=== PATIENT | male | born 1975 | race Caucasian/White ===

== ENCOUNTER 2018-02-19 13:23 | Observation (INO) ==
--- NOTE | 2018-02-19 13:48 | ED ---
HPI General Chief complaint: Extremity Injury, Upper Stated complaint: Rt hand injury Time Seen by Provider: 02/19/18 13:40 History of Present Illness HPI narrative: 42-year-old male presents to the emergency department for evaluation of right hand injury. 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 States that he went to urgent care and they removed the foreign body from his hand and placed him on clindamycin 300 mg 4 times daily. States he has been taking the clindamycin as prescribed, has had a total of 8 doses so far. States that the area has become more swollen and painful. States that he has decreased range of motion in the affected joint. Denies any fever, chills, nausea, vomiting, numbness or tingling, weakness. No other complaints or concerns. States he is up-to-date on his tetanus vaccination. Related Data Home Medications Medication Instructions Recorded Confirmed No Known Home Medications 02/19/18 02/19/18 Allergies Allergy/AdvReac Type Severity Reaction Status Date / Time No Known Allergies Allergy Unverified 02/19/18 13:33 Review of Systems ROS: all other systems reviewed are negative PMFSH Medical History Medical History No significant past medical history (Acute) Social History Social History Substance History: No History of Abuse Second Hand Smoke Exposure: No Smoking Status: Never smoker How Often Do You Have a Drink Containing Alcohol: Monthly or less Recent Travel in [facility] within the Last 8 Weeks: No Recent Out of Country Travel within the Last 8 Weeks: No Exam Narrative Exam Narrative: GENERAL: Well-nourished and well-developed pleasant patient in no acute distress who is nontoxic appearing. SKIN: Warm and dry. HEAD: Normocephalic and atraumatic. EYES: No injection, drainage, or hyphema noted. PERRLA. EOMI. ENT: No nasal drainage noted. Oropharynx is clear. NECK: Supple and the trachea is midline. CARDIOVASCULAR: Regular rate and rhythm. RESPIRATORY: Breath sounds are equal bilaterally with no accessory muscle use, wheezing, rhonchi, or crackles. GASTROINTESTINAL: Abdomen is soft, non-tender, and nondistended. EXTREMITY: Right hand swollen, erythematous and tender over second MCP joint dorsal aspect with decreased range of motion in this joint. Full range of motion in all other joints. Normal opposition of thumb. Distal extremity neurovascularly intact with intact two point discrimination. MUSCULOSKELETAL: No obvious deformities, swelling, cyanosis, or ecchymosis is present throughout the upper and lower extremities. Patient has full range of motion without any signs of neurovascular compromise. Distal pulses are 2+ throughout. NEUROLOGICAL: Awake, alert, and oriented. Normal speech and gait. Cranial nerves are grossly intact. Course Initial Documented Vital Signs Temperature 99.3 F 02/19/18 13:28 Pulse Rate 66 02/19/18 13:28 Respiratory Rate 16 02/19/18 13:28 Blood Pressure 132/74 02/19/18 13:28 Pulse Oximetry 98 02/19/18 13:28 Last Documented Vital Signs Temperature 99.3 F 02/19/18 13:28 Pulse Rate 66 02/19/18 13:28 Respiratory Rate 16 02/19/18 13:28 Blood Pressure 132/74 02/19/18 13:28 Pulse Oximetry 98 02/19/18 13:28 Medical Decision Making MDM Narrative Medical decision making narrative: 42-year-old male presents to the emergency department for evaluation of right hand injury. Patient is afebrile, vital signs are stable. X-ray imaging has been ordered and is pending. Patient has been on antibiotic therapy for the past 2-1/2 days with worsening of symptoms. X-ray shows soft tissue swelling, otherwise unremarkable. I spoke with Dr. Navarro hand specialist who recommends admission to medicine for IV antibiotics, NPO, she will come see patient. I spoke with Arline Singleton [facility] who agrees to accept the patient to Dr. Al's service. Medical Screen Exam Complete: Yes Emergency Medical Condition: Yes Differential Diagnosis Differential Diagnosis: Cellulitis versus septic arthritis versus foreign body retention Lab Data Result diagrams: 02/19/18 15:08 02/19/18 15:08 Lab Results 02/19/18 02/19/18 02/19/18 Range/Units 15:08 15:08 15:08 CBC w Diff Auto diff final WBC 6.9 (4.0-11.0) th/mm3 RBC 4.97 (4.50-5.90) mil/mm3 Hgb 13.9 (13.0-17.0) gm/dL Hct 41.5 (39.0-51.0) % MCV 83.5 (80.0-100.0) fL MCH 28.0 (27.0-34.0) pg MCHC 33.6 (32.0-36.0) % RDW 13.1 (11.6-17.2) % Plt Count 260 (150-450) th/mm3 MPV 8.2 (7.0-11.0) fL Neut % (Auto) 64.8 (16.0-70.0) % Lymph % (Auto) 25.4 (9.0-44.0) % [place] % (Auto) 8.2 H (0.0-8.0) % Eos % (Auto) 1.1 (0.0-4.0) % Baso % (Auto) 0.5 (0.0-2.0) % Neut # (Auto) 4.4 (1.8-7.7) th/mm3 Lymph # (Auto) 1.8 (1.0-4.8) th/mm3 [place] # (Auto) 0.6 (0.0-0.9) th/mm3 Eos # (Auto) 0.1 (0.0-0.4) th/mm3 Baso # (Auto) 0.0 (0.0-0.2) th/mm3 WBC Differential . Differential Comment . ESR (0-15) mm/hr PT 10.5 (9.8-11.6) sec INR 1.0 Ratio Sodium 139 (136-145) meq/L Potassium 4.1 (3.5-5.1) meq/L Chloride 105 (98-107) meq/L Carbon Dioxide 27.9 (21.0-32.0) meq/L Anion Gap 6 (5-15) meq/L BUN 20 H (7-18) mg/dL Creatinine 1.30 (0.60-1.30) mg/dL Estimated GFR 61 L (>89) mL/min Random Glucose 88 (74-106) mg/dL Calcium 8.5 (8.5-10.1) mg/dL Total Bilirubin 0.3 (0.2-1.0) mg/dL AST 13 L (15-37) U/L ALT 20 (12-78) U/L Alkaline Phosphatase 117 (45-117) U/L C-Reactive Protein (0.00-0.30) mg/dL Total Protein 7.3 (6.4-8.2) g/dL Albumin 3.9 (3.4-5.0) g/dL 02/19/18 02/19/18 Range/Units 15:28 15:28 CBC w Diff WBC (4.0-11.0) th/mm3 RBC (4.50-5.90) mil/mm3 Hgb (13.0-17.0) gm/dL Hct (39.0-51.0) % MCV (80.0-100.0) fL MCH (27.0-34.0) pg MCHC (32.0-36.0) % RDW (11.6-17.2) % Plt Count (150-450) th/mm3 MPV (7.0-11.0) fL Neut % (Auto) (16.0-70.0) % Lymph % (Auto) (9.0-44.0) % [place] % (Auto) (0.0-8.0) % Eos % (Auto) (0.0-4.0) % Baso % (Auto) (0.0-2.0) % Neut # (Auto) (1.8-7.7) th/mm3 Lymph # (Auto) (1.0-4.8) th/mm3 [place] # (Auto) (0.0-0.9) th/mm3 Eos # (Auto) (0.0-0.4) th/mm3 Baso # (Auto) (0.0-0.2) th/mm3 WBC Differential Differential Comment ESR 6 (0-15) mm/hr PT (9.8-11.6) sec INR Ratio Sodium (136-145) meq/L Potassium (3.5-5.1) meq/L Chloride (98-107) meq/L Carbon Dioxide (21.0-32.0) meq/L Anion Gap (5-15) meq/L BUN (7-18) mg/dL Creatinine (0.60-1.30) mg/dL Estimated GFR (>89) mL/min Random Glucose (74-106) mg/dL Calcium (8.5-10.1) mg/dL Total Bilirubin (0.2-1.0) mg/dL AST (15-37) U/L ALT (12-78) U/L Alkaline Phosphatase (45-117) U/L C-Reactive Protein 1.54 H (0.00-0.30) mg/dL Total Protein (6.4-8.2) g/dL Albumin (3.4-5.0) g/dL Imaging Data Radiologist's impression: Hand X-Ray 02/19/18 13:47 CONCLUSION: Soft tissue swelling, negative for radiopaque foreign body Point of care ultrasound can be used to exclude such. Discharge Plan Discharge Disposition Patient Disposition: 30 Still Patient Discharge Condition Condition: Stable Discharge Details Diagnosis: Infection of right hand Physicians Team ED Provider: Gracie Solano ED Midlevel Provider: Louann Damon Primary Care Provider: Barbara Huffman Attending Provider: Pablo Al Other Providers: Poonam Navarro ED Status: Admitted Observation Patient
--- NOTE | 2018-02-19 14:34 | XR ---
EXAM DATE: 02/19/2018 2:15 PM EDT AGE/SEX: 42 years / Male INDICATIONS: Pain and swelling between 1st and 2nd digit. Patient states that a palm needle was st uck into his hand. CLINICAL DATA: This is the patient's initial encounter. Patient reports that signs and symptoms have been present for 3 days and indicates a pain score of 10/10. MEDICAL/SURGICAL HISTORY: None. None. COMPARISON: No prior exams available for comparison. FINDINGS: Bony structures are intact and in normal alignment. Osseous density is normal. Minimal soft tissue sw elling No radiopaque foreign bodies seen. CONCLUSION: Soft tissue swelling, negative for radiopaque foreign body Point of care ultrasound can be used to exclude such. Electronically signed by: Teddy Blanchard MD 02/19/2018 2:33 PM EDT
[2018-02-19] MEDS ORDERED: Vancomycin Inj 1 GM/200 ML PIGGYBACK IV.SIG ONE (15:03)
[2018-02-19 15:20] LABS: Baso % (Auto) 0.5 % (0.0-2.0); Eos # (Auto) 0.1 th/mm3 (0.0-0.4); Eos % (Auto) 1.1 % (0.0-4.0); Hematocrit 41.5 % (39.0-51.0); Hemoglobin 13.9 gm/dL (13.0-17.0); Lymph # (Auto) 1.8 th/mm3 (1.0-4.8); Lymph % (Auto) 25.4 % (9.0-44.0); Mean Corpuscular HGB Conc 33.6 % (32.0-36.0); Mean Corpuscular Volume 83.5 fL (80.0-100.0); Mean Platelet Volume 8.2 fL (7.0-11.0); Mono # (Auto) 0.6 th/mm3 (0.0-0.9); Mono % (Auto) 8.2 % (0.0-8.0); Neut # (Auto) 4.4 th/mm3 (1.8-7.7); Neut % (Auto) 64.8 % (16.0-70.0); Platelet Count 260 th/mm3 (150-450); Red Blood Count 4.97 mil/mm3 (4.50-5.90); Red Cell Distribution Width 13.1 % (11.6-17.2); White Blood Count 6.9 th/mm3 (4.0-11.0)
[2018-02-19 15:30] LABS: Chloride 105 meq/L (98-107); Potassium 4.1 meq/L (3.5-5.1); Sodium 139 meq/L (136-145)
[2018-02-19 15:33] LABS: Calcium 8.5 mg/dL (8.5-10.1); Prothrombin Time 10.5 sec (9.8-11.6)
[2018-02-19 15:34] LABS: Albumin 3.9 g/dL (3.4-5.0); Anion Gap 6 meq/L (5-15); Blood Urea Nitrogen 20 mg/dL (7-18); Carbon Dioxide 27.9 meq/L (21.0-32.0); Glucose,Random 88 mg/dL (74-106)
[2018-02-19 15:37] LABS: Alanine Aminotransferase 20 U/L (12-78); Aspartate Aminotransferase 13 U/L (15-37); Glomerular Filtration Rate 61 mL/min (>89)
[2018-02-19 15:38] LABS: Total Protein 7.3 g/dL (6.4-8.2)
[2018-02-19 15:40] LABS: Alkaline Phosphatase 117 U/L (45-117)
[2018-02-19] MEDS ORDERED: Vancomycin Inj 1,000 MG in Sodium Chlor 0.9% Inj 250 ML IV.SIG ONE (16:00)
[2018-02-19] MEDS ORDERED: Acetaminophen 325 MG Tablet PO PRN (16:22)
[2018-02-19] MEDS ORDERED: Bisacodyl 10 MG Supp RECTAL PRN (16:22)
--- NOTE | 2018-02-19 16:24 | P.HP ---
History of Present Illness Primary Care Physician: Barbara Huffman Chief Complaint: right hand infection, failed outpatient antibiotic therapy History of Present Illness: This is a 42-year-old male patient with no known medical history presented to the emergency department with right hand infection. 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 At that time he went to the urgent care and they removed a foreign body and placed him on clindamycin. Patient states he has been compliant with the clindamycin 4 times a day. Over the past 48 hours his right hand has gotten worse despite antibiotic use, states that the swelling has worsened as well as the pain. He complains of limited range of motion especially with his right index finger. Patient denies any fevers, chills, headache, chest pain, abdominal pain, nausea, vomiting, diarrhea or dysuria. Eyes any numbness or tingling in the right hand. He does admit to having a tetanus shot roughly 2 years ago. Denies any medical history. Does not take any medications at home. Denies smoking. Admits to weekly alcohol use. Denies any significant family medical history. - Diagnosis (1) Infection of right hand Review of Systems All other systems reviewed negative except as stated in HPI PMFSH - History History Provided By: Patient - Medical History Medical History: Medical History (Last Updated 02/19/18 @ 17:18 by Arline Singleton) No significant past medical history Tibia/fibula fracture - Family History Family History: Family History (Last Reviewed 02/19/18 @ 17:18 by Arline Singleton) Other Family history in first degree relatives is unremarkable - Tobacco History Second Hand Smoke Exposure: No Tobacco Use In Past 30 Days: No Smoking Status: Never smoker - Alcohol History How Often Do You Have a Drink Containing Alcohol: Monthly or less - Substance Use History Substance History: No History of Abuse - Travel History Recent Travel in the [place] Within the Last 8 Weeks: No Recent Travel Out of the Country Within the Last 8 Weeks: No - Immunization History Tetanus Immunization: <5 Years Hx Influenza Vaccine This Season: No Medications and Allergies Active Medications: Active Medications Vancomycin HCl 1,000 mg/ (Sodium Chloride) 250 mls @ 250 mls/hr IV.SIG ONCE ONE Stop: 02/19/18 16:59 Last Admin: 02/19/18 15:32 Dose: 250 mls/hr Sodium Chloride (Ns Flush) 2 ml IV.FLUSH PRN PRN PRN Reason: FLUSH AFTER USING IV ACCESS Allergies Allergy/AdvReac Type Severity Reaction Status Date / Time No Known Allergies Allergy Unverified 02/19/18 13:33 Home Medications Medication Instructions Recorded Confirmed Type No Known Home Medications 02/19/18 02/19/18 History Exam Vital signs: Vital Signs 02/19/18 13:28 Temperature 99.3 F Pulse Rate 66 Respiratory Rate 16 Blood Pressure 132/74 Pulse Oximetry 98 Intake & Output 02/18/18 02/19/18 02/19/18 18:59 06:59 18:59 Intake Total 100 / 100 Balance 100 / 100 Weight 118 kg Intake: IV 100 / 100 Maxipime Inj 1,000 MG In NS Inj 100 / 100 100 ML @ 200 mls/hr IV.SIG ONCE ONE Rx#:[id number] Narrative: GENERAL: Well-developed, well-nourished patient in [facility]. SKIN: Warm and dry. No rash. Right hand with swelling and erythema. Right index finger with limited range of motion. HEAD: Normocephalic. Atraumatic. EYES: Pupils equal and round. No scleral icterus. No injection or drainage. ENT: No nasal bleeding or discharge. Mucous membranes pink and moist. NECK: Supple. Trachea midline. CARDIOVASCULAR: Regular rate and rhythm. S1, S2 noted. No murmur appreciated. RESPIRATORY: No accessory muscle use. Clear to auscultation. Breath sounds equal bilaterally. GASTROINTESTINAL: Abdomen soft, non-tender, nondistended. Normoactive bowel sounds x4. MUSCULOSKELETAL: No obvious deformities. Extremities without clubbing, cyanosis , or edema. NEUROLOGICAL: Awake and alert. No obvious cranial nerve deficits. Motor grossly within normal limits. 5/5 muscle strength in bilateral upper and lower extremities. Normal speech. PSYCHIATRIC: Appropriate mood and affect; insight and judgment normal. Results - Labs CBC & Chem 7: 02/19/18 15:08 02/19/18 15:08 Labs: Laboratory Results - last 24 hr 02/19/18 02/19/18 02/19/18 15:08 15:08 15:08 CBC w Diff Auto diff final WBC 6.9 RBC 4.97 Hgb 13.9 Hct 41.5 MCV 83.5 MCH 28.0 MCHC 33.6 RDW 13.1 Plt Count 260 MPV 8.2 Neut % (Auto) 64.8 Lymph % (Auto) 25.4 [place] % (Auto) 8.2 H Eos % (Auto) 1.1 Baso % (Auto) 0.5 Neut # (Auto) 4.4 Lymph # (Auto) 1.8 [place] # (Auto) 0.6 Eos # (Auto) 0.1 Baso # (Auto) 0.0 WBC Differential . Differential Comment . PT 10.5 INR 1.0 Sodium 139 Potassium 4.1 Chloride 105 Carbon Dioxide 27.9 Anion Gap 6 BUN 20 H Creatinine 1.30 Estimated GFR 61 L Random Glucose 88 Calcium 8.5 Total Bilirubin 0.3 AST 13 L ALT 20 Alkaline Phosphatase 117 C-Reactive Protein Total Protein 7.3 Albumin 3.9 02/19/18 15:28 CBC w Diff WBC RBC Hgb Hct MCV MCH MCHC RDW Plt Count MPV Neut % (Auto) Lymph % (Auto) [place] % (Auto) Eos % (Auto) Baso % (Auto) Neut # (Auto) Lymph # (Auto) [place] # (Auto) Eos # (Auto) Baso # (Auto) WBC Differential Differential Comment PT INR Sodium Potassium Chloride Carbon Dioxide Anion Gap BUN Creatinine Estimated GFR Random Glucose Calcium Total Bilirubin AST ALT Alkaline Phosphatase C-Reactive Protein 1.54 H Total Protein Albumin - Imaging Impressions Hand X-Ray 02/19/18 13:47 CONCLUSION: Soft tissue swelling, negative for radiopaque foreign body Point of care ultrasound can be used to exclude such. Caprini VTE Risk Assessment Caprini VTE Risk Assessment: No/Low Risk (score <= 1) Caprini Risk Assessment Model: Point Value = 1 Point Value = 2 Point Value = 3 Point Value = 5 Age 41-60 Minor surgery BMI > 25 kg/m2 Swollen legs Varicose veins or History of unexplained or recurrent spontaneous Oral contraceptives or hormone replacement Sepsis (< 1 month) Serious lung disease, including pneumonia (< 1 month) Abnormal pulmonary function Acute myocardial infarction Congestive heart failure (< 1 month) History of inflammatory bowel disease Medical patient at bed rest Age 61-74 Arthroscopic surgery Major open surgery (> 45 min) Laparoscopic surgery (> 45 min) Malignancy Confined to bed (> 72 hours) Immobilizing plaster cast Central venous access Age >= 75 History of VTE Family history of VTE Factor V Leiden Prothrombin [id number] Lupus anticoagulant Anticardiolipin antibodies Elevated serum homocysteine Heparin-induced thrombocytopenia Other congenital or acquired thrombophilia Stroke (< 1 month) Elective arthroplasty Hip, pelvis, or leg fracture Acute spinal cord injury (< 1 month) Prophylaxis Regimen: Total Risk Factor Score Risk Level Prophylaxis Regimen 0-1 Low Early ambulation 2 Moderate Order ONE of the following: *Sequential Compression Device (SCD) *Heparin 5000 units SQ BID 3-4 Higher Order ONE of the following medications: *Heparin 5000 units SQ TID *Enoxaparin/Lovenox 40 mg SQ daily (WT < 150 kg, CrCl > 30 mL/min) *Enoxaparin/Lovenox 30 mg SQ daily (WT < 150 kg, CrCl > 10-29 mL/min) *Enoxaparin/Lovenox 30 mg SQ BID (WT < 150 kg, CrCl > 30 mL/min) AND/OR *Sequential Compression Device (SCD) 5 or more Highest Order ONE of the following medications: *Heparin 5000 units SQ TID (Preferred with Epidurals) *Enoxaparin/Lovenox 40 mg SQ daily (WT < 150 kg, CrCl > 30 mL/min) *Enoxaparin/Lovenox 30 mg SQ daily (WT < 150 kg, CrCl > 10-29 mL/min) *Enoxaparin/Lovenox 30 mg SQ BID (WT < 150 kg, CrCl > 30 mL/min) AND *Sequential Compression Device (SCD) Assessment and Plan - Assessment (1) Infection of right hand Code(s): L08.9 - Local infection of the skin and subcutaneous tissue, unspecified Status: Acute - Plan This is a 42-year-old male patient with: Right hand infection secondary to injury Failed outpatient antibiotic therapy with Clindamycin -Patient presents with right hand swelling and pain. 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 Failed outpatient antibiotic therapy with clindamycin. -Right hand x-ray reviewed showing soft tissue swelling. No foreign body. -Hand surgery has been consulted, has seen patient in order for right hand MRI, evaluate for any septic arthritis. This is pending. Follow. -Patient given IV cefepime and vancomycin in ED. Will continue for now. -CBC reviewed, no leukocytosis at this time. No fever documented. Monitor for infection. -Keep NPO for now. May need surgery. -Supportive care. DVT Prophylaxis: SCDs.
[2018-02-19] MEDS ORDERED: Gadobutrol PF 10 MMOL/10 ML Vial (for RAD) IV.SIG ONE (17:40)
--- NOTE | 2018-02-19 18:37 | MR ---
EXAM DATE: 02/19/2018 6:15 PM EDT AGE/SEX: 42 years / Male INDICATIONS: Abscess. Infection CLINICAL DATA: This is the patient's initial encounter. Patient reports that signs and symptoms have been present for 3 days and indicates a pain score of 5/10. MEDICAL/SURGICAL HISTORY: None. . ORIF tibia. COMPARISON: No prior exams available for comparison. TECHNIQUE: Multiplanar, multisequence MRI examination was performed without contrast and after the i ntravenous administration of 10 ml Gadavist (gadobutrol) contrast as a single exam dose. FINDINGS: There is subcutaneous edema predominantly on the dorsum of the hand. No loculated fluid is seen to rinaldi ggest abscess formation. No significant marrow signal abnormality to suggest osteomyelitis. No fractu re or dislocation. Small joint effusion at the second metacarpophalangeal joint. CONCLUSION: 1. Cellulitis, predominantly on the dorsum of the hand without drainable fluid collection. Mild effu pardeep at the second metacarpophalangeal joint. No evidence for osteomyelitis. Electronically signed by: Noam Fagan MD 02/19/2018 6:36 PM EDT
[2018-02-19] MEDS: Sod Chloride 0.9% Inj 1,000 ML IV.CONT SCH (19:12)
[2018-02-20] MEDS: Sod Chloride 0.9% Inj 1,000 ML IV.CONT SCH (06:07)
[2018-02-20] MEDS ORDERED: Neomycin/Polymyxin G.U. Irrigant 1 ML Ampul ONE (07:53)
[2018-02-20] MEDS ORDERED: Lidocaine 2% Inj 50 ML Vial ONE (07:53)
[2018-02-20] MEDS ORDERED: fentaNYL Citrate Inj 100 MCG/2 ML Ampul ONE (07:58)
[2018-02-20] MEDS ORDERED: Metoprolol Tartrate 25 MG Tablet PO ONE (08:10)
[2018-02-20] MEDS ORDERED: Chlorhexidine Gluconate 2% 1 Pack (2 Cloths) TOPICAL ONE (08:10)
[2018-02-20 08:47] LABS: Baso % (Auto) 0.5 % (0.0-2.0); Eos # (Auto) 0.1 th/mm3 (0.0-0.4); Eos % (Auto) 1.8 % (0.0-4.0); Hemoglobin 13.9 gm/dL (13.0-17.0); Lymph # (Auto) 1.3 th/mm3 (1.0-4.8); Mean Corpuscular HGB Conc 33.9 % (32.0-36.0); Mean Corpuscular Hemoglobin 28.6 pg (27.0-34.0); Mean Corpuscular Volume 84.5 fL (80.0-100.0); Mean Platelet Volume 8.6 fL (7.0-11.0); Mono # (Auto) 0.4 th/mm3 (0.0-0.9); Mono % (Auto) 8.3 % (0.0-8.0); Neut # (Auto) 3.6 th/mm3 (1.8-7.7); Neut % (Auto) 65.4 % (16.0-70.0); Platelet Count 247 th/mm3 (150-450); Red Blood Count 4.84 mil/mm3 (4.50-5.90); Red Cell Distribution Width 13.2 % (11.6-17.2); White Blood Count 5.4 th/mm3 (4.0-11.0)
[2018-02-20 08:51] LABS: Potassium 3.9 meq/L (3.5-5.1)
[2018-02-20 08:55] LABS: Calcium 8.2 mg/dL (8.5-10.1)
[2018-02-20 08:56] LABS: Carbon Dioxide 25.1 meq/L (21.0-32.0)
[2018-02-20] MEDS ORDERED: Lidocaine PF 1% Inj 5 ML Syringe INFILTRATN ONE (08:57)
[2018-02-20] MEDS ORDERED: Sodium Chlor 0.9% Inj 500 ML IV.SIG SCH (09:00)
--- NOTE | 2018-02-20 09:29 | P.PNOP ---
Physical Exam Vital signs: Vital Signs 02/19/18 13:28 02/19/18 18:16 02/19/18 20:00 Temperature 99.3 F 96.8 F L Pulse Rate 66 74 63 Respiratory Rate 16 16 20 Blood Pressure 132/74 119/65 129/74 Pulse Oximetry 98 94 L 97 02/20/18 00:00 02/20/18 07:50 Temperature 96.5 F L 97.8 F Pulse Rate 64 64 Respiratory Rate 20 12 Blood Pressure 102/57 L 126/83 Pulse Oximetry 96 97 Intake & Output 02/19/18 02/20/18 02/20/18 18:59 06:59 18:59 Intake Total 350 / 350 1100 / 1100 100 / 100 Balance 350 / 350 1100 / 1100 100 / 100 Weight 118 kg 118.4 kg Intake: IV 350 / 350 1100 / 1100 100 / 100 NS Inj 1,000 ML @ 100 mls/hr IV 1000 / 1000 .CONT .Q10H PIETER Rx#:[id number] Maxipime Inj 1,000 MG In NS Inj 100 / 100 100 / 100 100 / 100 100 ML @ 200 mls/hr IV.SIG Q8H PIETER Rx#:[id number] Vancomycin Inj 1,000 MG In NS 250 / 250 Inj 250 ML @ 250 mls/hr IV.SIG ONCE ONE Rx#:[id number] Oral 0 / 0 Other: # Voids 3 # Bowel Movements 3 Results - Labs CBC & Chem 7: 02/20/18 07:25 02/20/18 07:25 Laboratory Results - last 24 hr 02/19/18 02/19/18 02/19/18 15:08 15:08 15:08 CBC w Diff Auto diff final WBC 6.9 RBC 4.97 Hgb 13.9 Hct 41.5 MCV 83.5 MCH 28.0 MCHC 33.6 RDW 13.1 Plt Count 260 MPV 8.2 Neut % (Auto) 64.8 Lymph % (Auto) 25.4 [place] % (Auto) 8.2 H Eos % (Auto) 1.1 Baso % (Auto) 0.5 Neut # (Auto) 4.4 Lymph # (Auto) 1.8 [place] # (Auto) 0.6 Eos # (Auto) 0.1 Baso # (Auto) 0.0 WBC Differential . Differential Comment . ESR PT 10.5 INR 1.0 Sodium 139 Potassium 4.1 Chloride 105 Carbon Dioxide 27.9 Anion Gap 6 BUN 20 H Creatinine 1.30 Estimated GFR 61 L Random Glucose 88 Calcium 8.5 Total Bilirubin 0.3 AST 13 L ALT 20 Alkaline Phosphatase 117 C-Reactive Protein Total Protein 7.3 Albumin 3.9 02/19/18 02/19/18 02/20/18 15:28 15:28 07:25 CBC w Diff Auto diff final WBC 5.4 RBC 4.84 Hgb 13.9 Hct 41.0 MCV 84.5 MCH 28.6 MCHC 33.9 RDW 13.2 Plt Count 247 MPV 8.6 Neut % (Auto) 65.4 Lymph % (Auto) 24.0 [place] % (Auto) 8.3 H Eos % (Auto) 1.8 Baso % (Auto) 0.5 Neut # (Auto) 3.6 Lymph # (Auto) 1.3 [place] # (Auto) 0.4 Eos # (Auto) 0.1 Baso # (Auto) 0.0 WBC Differential . Differential Comment . ESR 6 PT INR Sodium Potassium Chloride Carbon Dioxide Anion Gap BUN Creatinine Estimated GFR Random Glucose Calcium Total Bilirubin AST ALT Alkaline Phosphatase C-Reactive Protein 1.54 H Total Protein Albumin 02/20/18 07:25 CBC w Diff WBC RBC Hgb Hct MCV MCH MCHC RDW Plt Count MPV Neut % (Auto) Lymph % (Auto) [place] % (Auto) Eos % (Auto) Baso % (Auto) Neut # (Auto) Lymph # (Auto) [place] # (Auto) Eos # (Auto) Baso # (Auto) WBC Differential Differential Comment ESR PT INR Sodium 140 Potassium 3.9 Chloride 109 H Carbon Dioxide 25.1 Anion Gap 6 BUN 15 Creatinine 0.98 Estimated GFR 85 L Random Glucose 82 Calcium 8.2 L Total Bilirubin AST ALT Alkaline Phosphatase C-Reactive Protein Total Protein Albumin - Imaging Impressions Hand MRI 02/19/18 00:00 CONCLUSION: 1. Cellulitis, predominantly on the dorsum of the hand without drainable fluid collection. Mild effusion at the second metacarpophalangeal joint. No evidence for osteomyelitis. Hand X-Ray 02/19/18 13:47 CONCLUSION: Soft tissue swelling, negative for radiopaque foreign body Point of care ultrasound can be used to exclude such. Assessment and Plan - Assessment and Plan 42yM POD0 s/p I&D right hand and removal foreign body -Elevate hand, Ab per primary team, Okay to discharge per hand surgery with followup prn
--- NOTE | 2018-02-20 09:30 | MB ---
cc: Poonam Navarro MD DATE: 02/20/2018 REASON FOR CONSULTATION: Swelling right hand. 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 States he got a palm frond in his hand this past Thursday. He went to an urgent care where this was removed and he was given oral antibiotics. He reports worsening pain and swelling and presented to the emergency room yesterday for evaluation. He reports some improvement on the IV antibiotics overnight, but persistent pain and swelling over the right hand. He is concerned about retained a palm frond. Denies any prior significant injuries to the right hand. PAST MEDICAL HISTORY: None reported. PAST SURGICAL HISTORY: Leg fracture. SOCIAL HISTORY: Denies tobacco or drug use. Reports social alcohol use. PHYSICAL EXAMINATION: VITAL SIGNS: Stable. EXTREMITIES: Exam of the right hand shows mild swelling over the dorsum of the right index finger. Pain with range of motion of the index finger. Sensation intact in the median, ulnar and radial distribution. 2+ radial pulse. LABORATORY DATA: White count of 6.9, ESR 6, CRP 1.54. IMAGING: X-ray shows no evidence of fracture. MRI does not show a large abscess. ASSESSMENT AND PLAN: A 42-year-old right-hand dominant male with swelling over the right hand concern for a retained foreign body. Treatment options discussed with the patient including continued observation, IV antibiotics versus surgical intervention. The patient requested surgical intervention. Risks were explained not limited to wound complications, infection, nonhealing wound, persistent pain and swelling, stiffness and he elects to proceed. Poonam Navarro MD [facility]/ct , 08:39 AM , 08:43 AM KERRY
--- NOTE | 2018-02-20 10:05 | P.PNIM ---
Subjective Interval history: Follow up right hand cellulitis/injury. Patient seen and examined, sitting up in bed comfortably, status post I&D of right hand by surgeon. Did well. No complaints. Patients pain is well controlled at this time, denies any numbness of tingling. Dressing dry and intact. Patient and updated about MRI findings and plan. DC home with antibiotics and pain medications, follow up with PCP as well as hand surgeon. All questions answered. Patient is stable at this time and agreeable to the plan. Denies any chest pain, headache, ab pain, n /v/d. Physical Exam Vital signs: Vital Signs 02/19/18 13:28 02/19/18 18:16 02/19/18 20:00 Temperature 99.3 F 96.8 F L Pulse Rate 66 74 63 Respiratory Rate 16 16 20 Blood Pressure 132/74 119/65 129/74 Pulse Oximetry 98 94 L 97 02/20/18 00:00 02/20/18 07:50 02/20/18 09:20 Temperature 96.5 F L 97.8 F 97.8 F Pulse Rate 64 64 62 Respiratory Rate 20 12 10 L Blood Pressure 102/57 L 126/83 106/71 Pulse Oximetry 96 97 94 L Intake & Output 02/19/18 02/20/18 02/20/18 18:59 06:59 18:59 Intake Total 350 / 350 1100 / 1100 100 / 100 Balance 350 / 350 1100 / 1100 100 / 100 Weight 118 kg 118.4 kg Intake: IV 350 / 350 1100 / 1100 100 / 100 NS Inj 1,000 ML @ 100 mls/hr IV 1000 / 1000 .CONT .Q10H [facility] Rx#:[id number] Maxipime Inj 1,000 MG In NS Inj 100 / 100 100 / 100 100 / 100 100 ML @ 200 mls/hr IV.SIG Q8H [facility] Rx#:[id number] Vancomycin Inj 1,000 MG In NS 250 / 250 Inj 250 ML @ 250 mls/hr IV.SIG ONCE ONE Rx#:[id number] Oral 0 / 0 Other: # Voids 3 # Bowel Movements 3 Narrative: GENERAL: Well-developed, well-nourished patient in NAD. SKIN: Warm and dry. No rash. Right hand with surgical dressing, c/d/i. Skin color normal, sensation intact. Cap refill < 5 secs. HEAD: Normocephalic. Atraumatic. EYES: Pupils equal and round. No scleral icterus. No injection or drainage. ENT: No nasal bleeding or discharge. Mucous membranes pink and moist. NECK: Supple. Trachea midline. CARDIOVASCULAR: Regular rate and rhythm. S1, S2 noted. No murmur appreciated. RESPIRATORY: No accessory muscle use. Clear to auscultation. Breath sounds equal bilaterally. GASTROINTESTINAL: Abdomen soft, non-tender, nondistended. Normoactive bowel sounds x4. MUSCULOSKELETAL: No obvious deformities. Extremities without clubbing, cyanosis , or edema. NEUROLOGICAL: Awake and alert. No obvious cranial nerve deficits. Motor grossly within normal limits. 5/5 muscle strength in bilateral upper and lower extremities. Normal speech. PSYCHIATRIC: Appropriate mood and affect; insight and judgment normal. Results - Labs CBC & Chem 7: 02/20/18 07:25 02/20/18 07:25 Laboratory Results - last 24 hr 02/19/18 02/19/18 02/19/18 15:08 15:08 15:08 CBC w Diff Auto diff final WBC 6.9 RBC 4.97 Hgb 13.9 Hct 41.5 MCV 83.5 MCH 28.0 MCHC 33.6 RDW 13.1 Plt Count 260 MPV 8.2 Neut % (Auto) 64.8 Lymph % (Auto) 25.4 [place] % (Auto) 8.2 H Eos % (Auto) 1.1 Baso % (Auto) 0.5 Neut # (Auto) 4.4 Lymph # (Auto) 1.8 [place] # (Auto) 0.6 Eos # (Auto) 0.1 Baso # (Auto) 0.0 WBC Differential . Differential Comment . ESR PT 10.5 INR 1.0 Sodium 139 Potassium 4.1 Chloride 105 Carbon Dioxide 27.9 Anion Gap 6 BUN 20 H Creatinine 1.30 Estimated GFR 61 L Random Glucose 88 Calcium 8.5 Total Bilirubin 0.3 AST 13 L ALT 20 Alkaline Phosphatase 117 C-Reactive Protein Total Protein 7.3 Albumin 3.9 02/19/18 02/19/18 02/20/18 15:28 15:28 07:25 CBC w Diff Auto diff final WBC 5.4 RBC 4.84 Hgb 13.9 Hct 41.0 MCV 84.5 MCH 28.6 MCHC 33.9 RDW 13.2 Plt Count 247 MPV 8.6 Neut % (Auto) 65.4 Lymph % (Auto) 24.0 [place] % (Auto) 8.3 H Eos % (Auto) 1.8 Baso % (Auto) 0.5 Neut # (Auto) 3.6 Lymph # (Auto) 1.3 [place] # (Auto) 0.4 Eos # (Auto) 0.1 Baso # (Auto) 0.0 WBC Differential . Differential Comment . ESR 6 PT INR Sodium Potassium Chloride Carbon Dioxide Anion Gap BUN Creatinine Estimated GFR Random Glucose Calcium Total Bilirubin AST ALT Alkaline Phosphatase C-Reactive Protein 1.54 H Total Protein Albumin 02/20/18 07:25 CBC w Diff WBC RBC Hgb Hct MCV MCH MCHC RDW Plt Count MPV Neut % (Auto) Lymph % (Auto) [place] % (Auto) Eos % (Auto) Baso % (Auto) Neut # (Auto) Lymph # (Auto) [place] # (Auto) Eos # (Auto) Baso # (Auto) WBC Differential Differential Comment ESR PT INR Sodium 140 Potassium 3.9 Chloride 109 H Carbon Dioxide 25.1 Anion Gap 6 BUN 15 Creatinine 0.98 Estimated GFR 85 L Random Glucose 82 Calcium 8.2 L Total Bilirubin AST ALT Alkaline Phosphatase C-Reactive Protein Total Protein Albumin - Imaging Impressions Hand MRI 02/19/18 00:00 CONCLUSION: 1. Cellulitis, predominantly on the dorsum of the hand without drainable fluid collection. Mild effusion at the second metacarpophalangeal joint. No evidence for osteomyelitis. Hand X-Ray 02/19/18 13:47 CONCLUSION: Soft tissue swelling, negative for radiopaque foreign body Point of care ultrasound can be used to exclude such. Assessment and Plan - Assessment (1) Infection of right hand Code(s): L08.9 - Local infection of the skin and subcutaneous tissue, unspecified Status: Acute - Plan This is a 42-year-old male patient with: Right hand infection secondary to injury Failed outpatient antibiotic therapy with Clindamycin -Patient presents with right hand swelling and pain. 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 Failed outpatient antibiotic therapy with clindamycin. -Right hand x-ray reviewed showing soft tissue swelling. No foreign body. MRI showing cellulitis. -Hand surgery has been consulted, performed I&D of right hand. DC home today. -Patient given IV cefepime and vancomycin in ED. Given dose of augmentin and pain medication as needed. -CBC reviewed, no leukocytosis at this time. No fever documented. -Tolerating PO intake. -Stable to go home. -Activity as tolerated. -Elevate right hand. -Keep dressing clean and dry. Change daily. -Pain medications and abx as prescribed. -Follow up PCP and hand surgeon.
--- NOTE | 2018-02-20 11:12 | MP ---
cc: Poonam Navarro MD DATE OF OPERATION: 02/20/2018 DATE OF SERVICE: 02/20/2015 PREOPERATIVE DIAGNOSIS: Abscess, right index finger extensor tendon sheath. POSTOPERATIVE DIAGNOSIS: Abscess, right index finger extensor tendon sheath. PROCEDURE PERFORMED: Incision and drainage abscess extensor tendon sheath, right index finger with removal of foreign body SURGEON: Poonam Navarro MD ANESTHESIA: General, local. COMPLICATIONS: None. TOURNIQUET TIME: 4 minutes at 200 mmHg. SPECIMENS: Culture. INDICATIONS FOR PROCEDURE: Rodrigue Medina is a 42-year-old, right-hand dominant male who states that he got a palm frond in his hand several days ago, which was removed in urgent care and then he was started on oral antibiotics. He reports persistent pain and swelling. He presented for evaluation. He was admitted on IV antibiotics. He elected to proceed with surgical intervention. Risks were explained, including wound complications, infection, stiffness, need for additional surgeries and he elected to proceed. DESCRIPTION OF PROCEDURE: The patient was identified in the preoperative holding and the correct extremity was marked. The patient was taken to the operating room where anesthesia was induced. The right upper extremity was prepped and draped in normal sterile fashion. The area of puncture wound was incised, tourniquet was inflated to 200 mmHg for 4 minutes. A culture was sent. The extensor tendon sheath was debrided. There appeared to be no purulence coming from around the metacarpophalangeal joint. There was a small piece of palm frond which was removed. Tourniquet was released. Hemostasis was obtained. Wound was irrigated with antibiotic saline. Chromic sutures were placed. The patient was placed into a soft dressing. Approximately 5 mL of 2% lidocaine with epinephrine was used for local anesthesia. The patient will remain in the hospital for IV antibiotics. Poonam Navarro MD [facility]/ , 10:47 AM , 10:[address] [facility]
[2018-02-20] MEDS ORDERED: Vancomycin Inj 1,000 MG in Sodium Chlor 0.9% Inj 250 ML IV.SIG SCH (18:00)
[2018-02-20] MEDS ORDERED: Melatonin 5 MG Tablet PO SCH (21:00)
[2018-02-20 21:24] VITALS: RESP 20
[2018-02-21 00:16] VITALS: BP 114/63; PULSE 70; TEMP 96.7; O2SAT 94
--- NOTE | 2018-02-21 08:12 | P.DS ---
Date of admission: 02/19/18 16:19 Primary care physician: Barbara Huffman Brief History from admission: This is a 42-year-old male patient with no known medical history presented to the emergency department with right hand infection. 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 At that time he went to the urgent care and they removed a foreign body and placed him on clindamycin. Patient states he has been compliant with the clindamycin 4 times a day. Over the past 48 hours his right hand has gotten worse despite antibiotic use, states that the swelling has worsened as well as the pain. He complains of limited range of motion especially with his right index finger. Patient denies any fevers, chills, headache, chest pain, abdominal pain, nausea, vomiting, diarrhea or dysuria. Eyes any numbness or tingling in the right hand. He does admit to having a tetanus shot roughly 2 years ago. Denies any medical history. Does not take any medications at home. Denies smoking. Admits to weekly alcohol use. Denies any significant family medical history. Patient update on day of discharge: Follow up right hand infection and injury, status post I&D. Patient doing well, lying in bed comfortably in nad. No acute events overnight. Eating and drinking well, no ab pain,n/v/d. RIght hand ROM intact, no numbness or tingling. Incision clean and dry, dressing removed and redressed. Will DC home. Follow up with PCP and hand surgeon. DS: Diagnosis - Discharge Diagnosis (1) Infection of right hand Status: Acute DS: Medications - Discharge Medications Prescriptions: amoxicillin-pot clavulanate [Augmentin] 1 tab PO BID 10 Days #20 tab bacitracin zinc [Antibiotic (bacitracin zinc)] 1 applic TOPICAL DAILY #1 g hydrocodone-acetaminophen [[place]] 1 tab PO Q6H PRN 2 Days tab PRN Reason: Pain DS: Summary Hospital Course: This is a 42-year-old male patient who presented with right hand infection secondary to injury, failed outpatient antibiotic therapy with Clindamycin. Patient presents with right hand swelling and pain. 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 Failed outpatient antibiotic therapy with clindamycin. Right hand x-ray reviewed showing soft tissue swelling. No foreign body. MRI showing cellulitis. Hand surgery has been consulted, performed I&D of right hand. Given IV antibiotics here while hospitalized. Patient given IV cefepime and vancomycin in ED. Given dose of augmentin and pain medication as needed. CBC with no leukocytosis at this time. No fever documented. Tolerating PO intake. Stable to go home. Activity as tolerated. Elevate right hand. Keep dressing clean and dry. Change daily. Pain medications and abx as prescribed. Follow up PCP and hand surgeon. - Time Spent with Patient Total time spent providing and/or coordinating discharge services: Greater than 30 minutes - Quality: VTE Deep Vein Thrombosis/Pulmonary Embolism Present on Admission: No Exam Vital signs: Vital Signs 02/20/18 09:20 02/20/18 09:30 02/20/18 09:55 Temperature 97.8 F Pulse Rate 62 62 Respiratory Rate 10 L 16 Blood Pressure 106/71 111/75 Pulse Oximetry 94 L 96 97 02/20/18 16:00 02/20/18 20:00 02/21/18 00:00 Temperature 97.6 F 96.4 F L 96.7 F L Pulse Rate 64 67 70 Respiratory Rate 16 20 20 Blood Pressure 113/64 107/59 L 114/63 Pulse Oximetry 96 96 94 L Intake & Output 02/20/18 02/21/18 02/21/18 18:59 06:59 18:59 Intake Total 1590 / 1590 830 / 830 100 / 100 Balance 1590 / 1590 830 / 830 100 / 100 Weight 122 kg Intake: IV 630 / 630 350 / 350 100 / 100 NS Inj 1,000 ML @ 100 mls/hr IV 130 / 130 .CONT .Q10H [facility] Rx#:[id number] Maxipime Inj 1,000 MG In NS Inj 200 / 200 100 / 100 100 / 100 100 ML @ 200 mls/hr IV.SIG Q8H [facility]ETER Rx#:[id number] LR 1000 mL Inj 1,000 ML @ 30 300 / 300 mls/hr IV.SIG .Q24H [facility]ER Rx#: [id number] Vancomycin Inj 1,000 MG In NS 250 / 250 Inj 250 ML @ 250 mls/hr IV.SIG Q24H [facility]ER Rx#:[id number] Oral 960 / 960 480 / 480 Other: # Voids 5 3 Date of Last Bowel Movement 02/20/18 # Bowel Movements 0 Narrative: GENERAL: Well-developed, well-nourished patient in NAD. SKIN: Warm and dry. No rash. Right hand dressing removed and assessed wound. No erythema, incision clean/d/i, sutures in place. No drainage. No pain, numbness or tingling to right hand. RN to redress. HEAD: Normocephalic. Atraumatic. EYES: Pupils equal and round. No scleral icterus. No injection or drainage. ENT: No nasal bleeding or discharge. Mucous membranes pink and moist. NECK: Supple. Trachea midline. CARDIOVASCULAR: Regular rate and rhythm. S1, S2 noted. No murmur appreciated. RESPIRATORY: No accessory muscle use. Clear to auscultation. Breath sounds equal bilaterally. GASTROINTESTINAL: Abdomen soft, non-tender, nondistended. Normoactive bowel sounds x4. MUSCULOSKELETAL: No obvious deformities. Extremities without clubbing, cyanosis , or edema. NEUROLOGICAL: Awake and alert. No obvious cranial nerve deficits. Motor grossly within normal limits. 5/5 muscle strength in bilateral upper and lower extremities. Normal speech. PSYCHIATRIC: Appropriate mood and affect; insight and judgment normal. Results Procedures completed during hospitalization: I&D of right hand injury. Labs on day of discharge: Labs from last 24 hours 02/20/18 02/20/18 07:25 07:25 CBC w Diff Auto diff final WBC 5.4 RBC 4.84 Hgb 13.9 Hct 41.0 MCV 84.5 MCH 28.6 MCHC 33.9 RDW 13.2 Plt Count 247 MPV 8.6 Neut % (Auto) 65.4 Lymph % (Auto) 24.0 [place] % (Auto) 8.3 H Eos % (Auto) 1.8 Baso % (Auto) 0.5 Neut # (Auto) 3.6 Lymph # (Auto) 1.3 [place] # (Auto) 0.4 Eos # (Auto) 0.1 Baso # (Auto) 0.0 WBC Differential . Differential Comment . Sodium 140 Potassium 3.9 Chloride 109 H Carbon Dioxide 25.1 Anion Gap 6 BUN 15 Creatinine 0.98 Estimated GFR 85 L Random Glucose 82 Calcium 8.2 L - Impressions ITS Impressions Hand MRI 02/19/18 00:00 CONCLUSION: 1. Cellulitis, predominantly on the dorsum of the hand without drainable fluid collection. Mild effusion at the second metacarpophalangeal joint. No evidence for osteomyelitis. Hand X-Ray 02/19/18 13:47 CONCLUSION: Soft tissue swelling, negative for radiopaque foreign body Point of care ultrasound can be used to exclude such. Discharge Plan - Discharge Disposition Patient Disposition: 01 Discharge Home - Discharge Condition Condition: Stable - Discharge Order Discharge Orders: Discharge Order (Routine); Ordered 02/21/18 Ordered By: Arline Singleton Hand Surgery Clear for Discharge (Routine); Ordered 02/20/18 Ordered By: Poonam Navarro - Discharge Details Anticipated Discharge Date: 02/20/18 - Physicians Team Primary Care Provider: Barbara Huffman Attending Provider: Pablo Al Other Providers: Poonam Navarro MD
[2018-02-21] MEDS ORDERED: Bacitracin Oint 0.9 GM Packet TOPICAL ONE (08:30)
== END 2018-02-21 09:36 | disposition home or self-care (01) ==
LOC: PHEDA 13:23 → PHEFT 13:23 → OBSVTOIN 16:19 → INTOOBSV 16:19 → PH3 18:27 → PHEDA 18:27 → PH3 18:34
PROVIDERS: ADMIT Internal Medicine; ATTEND Internal Medicine